=== PATIENT | female | born 1985 | race Caucasian/White ===

== ENCOUNTER 2016-11-28 05:51 | Day surgery (SDC) | payer BC ==
[~2016-11-28] VITALS: Ht 167.6 cm; Wt 91.0 kg
[2016-11-28] VITALS (11 sets, daily range): BP systolic 101–137; BP diastolic 55–78; PULSE 58–75; RESP 14–16; TEMP 97.4–99; O2SAT 96–100; Ht 167.6 cm; Wt 91.0 kg
[~2016-11-28 05:51] MED LIST: ALBU1.252 AEROSOL; FLUO20CA30 PO; IBUP-1547 PO
--- NOTE | 2016-11-28 06:46 | ANESPREOP ---
Anesthesia Record Date and Time DATE: 11/28/16 TIME: 06:45 Proposed Surgical Procedure HYSTEROSCOPY, ENDOMETRIAL ABLATION NPO since: mn Allergies: Coded Allergies: amoxicillin trihydrate (Verified Allergy, Intermediate, Nausea and vomiting, 11/27/16) potassium clavulanate (Verified Allergy, Intermediate, Nausea and vomiting , 11/27/16) prochlorperazine edisylate (Verified Allergy, Intermediate, Severe Anxiety , 11/27/16) prochlorperazine maleate (Verified Allergy, Intermediate, Severe Anxiety, 11/27/16) Ht/Wt/BMI Height: 5 ' 6.00 " Weight: 91.000 kg BMI: 32.4 kg/m2 Vital Signs Date Time Temp Pulse Resp B/P Pulse Ox O2 Delivery O2 Flow Rate FiO2 11/28/16 06:09 16 11/28/16 06:05 99.0 61 112/68 96 Room Air Medications Inpatient Medications Current Medications Medications (Trade) Dose Ordered Sig/Afia Start Time Stop Time Status Last Admin Dose Admin Lactated Ringer's (Lactated Ringers) 1,000 ml @ 125 mls/hr Q8H 11/28/16 07:00 Albuterol Sulfate (Albuterol Sulfate) 1.25 Mg/3 Ml Vial.neb, 1 VIAL AEROSOL Q4HR , (Reported) Last Taken: on 08/12/16 Fluoxetine HCl (Prozac) 20 Mg Capsule, 2 CAP PO DAILY, (Reported) Last Taken: on 11/27/16 0630 Ibuprofen (Ibuprofen) 800 Mg Tablet, 800 MG PO Q8H PRN for PAIN Last Taken: on 10/28/16 Currently on Beta Pop: No Medical/Surgical History Anesthesia PMH: Reports: Asthma (last inhaler use: albuteral September 2015), 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 KNEE, CLEAN SCAR TISSUE Abdominal Surgeries: Yes - appendectomy Genitourinary Surgeries: Yes Cardiac Surgeries: No Endocrine Surgeries: No Reproductive Surgeries: Yes - ENDOMETRIAL ENDOSCOPY, TUBAL LIGATION Neurological Surgeries: No Ear Surgeries: No Nose Surgeries: Yes - sinus Throat Surgeries: No Other Surgeries: No Anesthesia Adverse Reactions: FOUND nausea and vomiting Family Hx of Anesthesia Advers: none Hx of Motion Sickness: No Physical Exam Respiratory: Bilat breath sounds equal, Lungs clear Cardiovascular: FOUND Regular rate, rhythm Airway Assessment Mallampati Score: II TMD: 3 Fingerbreadths Neck Extension: Good Overall Assessment: No Airway Concerns ASA: 2 Plan Anesthesia Plan: TIVA, LMA, GETA Discussion Discussed risks/options/alternatives of anesthesia and questions answered. Patient consents. Nursing pain assessment noted. Present: Family Member Attestation Statement Prior to the delivery of any anesthetic medication, I examined the patient, developed the plan, obtained the patient's consent and discussed the risk and benefits of the procedure with the patient/guardian. CRYSTAL MIKE CRNA Nov 28, 2016 06:46
[2016-11-28 06:52] LABS: HCT - HEMATOCRIT 39.7 % (36-46); HGB - HEMOGLOBIN 12.5 GM/DL (12-16); MEAN CORPUSCULAR HGB 28.7 UUG (26-34); MEAN CORPUSCULAR HGB CONC(MCHC 31.5 GM/DL (31-37); MEAN CORPUSCULAR VOLUME 91.3 UM3 (80-100); MEAN PLATELET VOLUME 9.7 UM3 (9.4-12.4); RED BLOOD COUNT 4.35 M/MM3 (4.00-5.20); WBC - WHITE BLOOD COUNT 7.4 T/MM3 (4.5-11.0)
[2016-11-28] MEDS ORDERED: FAMOTIDINE 20mg in NS 50ml IV ONE (07:00)
[2016-11-28] MEDS ORDERED: LR 1,000 ML IV SCH (07:00)
[2016-11-28] MEDS ORDERED: LIDOCAINE 1% (10mg/ml) 2ml SDV INJ ONE (07:00)
[2016-11-28] MEDS ORDERED: FENTANYL 100mcg/2ml INJECTION ONE (07:01)
[2016-11-28] MEDS ORDERED: PROPOFOL 500mg 50 ML IV ONE ×2 (07:02→07:41)
[2016-11-28] MEDS ORDERED: KETAMINE 500mg/10ml INJECTION ONE (07:02)
[2016-11-28] MEDS ORDERED: PROPOFOL 200mg 20 ML IV ONE (07:02)
[2016-11-28] MEDS ORDERED: MIDAZOLAM 2mg/2ml INJECTION ONE (07:16)
--- NOTE | 2016-11-28 08:12 | GYNOPNOTE1 ---
TUBE FITTER Postoperative Note Date of Operation: 11/28/16 Preoperative Diagnosis: Menorrhagia Postoperative Diagnosis: Same as Preoperative Procedure: Hysteroscopy without D&C, Endometrial Ablation Surgeon: Rodrigue Rangel MD Anesthesia Provider: Bean Zuniga CRNA Anesthesia Type: TIVA Estimated Blood Loss: minimal RODRIGUE RANGEL MD Nov 28, 2016 08:11
[2016-11-28] MEDS ORDERED: ONDANSETRON 4mg/2ml INJECTION IV PRN (08:30)
[2016-11-28] MEDS: HYDROMORPHONE 2mg/ml INJECTION IV PRN ×2 (08:32→08:43)
--- NOTE | 2016-11-28 08:42 | ANESPO ---
Post-Op Note Date 11/28/16 Time: 08:40 Status Pt Participated in Evaluation: Pt participated in person Vital Signs Date Time Temp Pulse Resp B/P Pulse Ox O2 Delivery O2 Flow Rate FiO2 11/28/16 08:32 16 11/28/16 08:30 60 137/73 99 Room Air 11/28/16 08:15 97.4 6.00 Respiratory Function: Airway patent, Regular respirations Cardiovascular Function: Regular pulse Mental Status: Alert/oriented Pain Level Intensity: 6 Hydration: Taking po fluids Complications during Recovery None apparent Follow-Up Instructions Instructions Per Surgeon CRYSTAL MIKE CRNA Nov 28, 2016 08:42
[2016-11-28] MEDS ORDERED: HYDROCODONE/APAP 5 mg/325 mg TABLET PO PRN (08:45)
[2016-11-28] MEDS ORDERED: IBUPROFEN 800 MG TABLET PO PRN (09:00)
--- NOTE | 2016-11-28 11:56 | OPNOTEF ---
DATE OF SURGERY: 11/28/2016 PREOPERATIVE DIAGNOSIS: 1) 31-year-old white female, G5, P4, with tubal ligation for contraception 2) Menorrhagia. POSTOPERATIVE DIAGNOSIS: same PROCEDURE: Diagnostic hysteroscopy with HTA endometrial ablation. SURGEON: Rodrigue Vila MD ANESTHESIA: TIVA by Bean Zuniga CRNA COMPLICATIONS: None. EBL: Minimal. DESCRIPTION OF PROCEDURE After adequate anesthesia, the patient was prepped and draped in the low lithotomy position. A heavy weighted speculum was placed posteriorly and an anterior retractor was used to visualize the cervix which was grasped at the 12 o'clock position with an Allis clamp. Uterus sounded to 9 cm. Uterus was retroverted. Cervix was dilated to a 23 Handley and then the HTA system and hysteroscope was inserted and the endometrial cavity was without polyps or abnormalities. Then the HTA system was activated and it had no leaks. It underwent a 10 minutes heat cycle and then the cool down. Then all instruments were removed from the vaginal tract and procedure was completed. The patient went to recovery room in stable condition. PAOLA
== END 2016-11-28 10:23 | disposition home or self-care (01) ==
LOC: SCU 05:51
PROVIDERS: ATTEND Obstetrics & Gynecology
DX: N92.0 Excessive and frequent menstruation with regular cycle (principal); J45.909 Unspecified asthma, uncomplicated; F32.9 Major depressive disorder, single episode, unspecified; Z79.899 Other long term (current) drug therapy; Z88.1 Allergy status to other antibiotic agents; Z88.8 Allergy status to other drugs, medicaments and biological substances
CPT/HCPCS: 36415; 58563; 84703; 85027; J1170; J2250; J2704; J3010; J7120